=== PATIENT | female | born 1945 | race Caucasian/White ===

== ENCOUNTER → 2017-02-17 | Outpatient (CLI) | payer OTHER | LOC: BMCIMAGING 09:13 | PROVIDERS: ATTEND Internal Medicine Rheumatology | DX: M25.511 Pain in right shoulder (principal); M16.11 Unilateral primary osteoarthritis, right hip ==

== ENCOUNTER → 2017-11-28 | Outpatient (CLI) | payer OTHER | LOC: FIMAGING 07:29 | PROVIDERS: ATTEND Internal Medicine Rheumatology | DX: R07.9 Chest pain, unspecified (principal); R05 Cough ==

== ENCOUNTER 2018-01-22 21:26 | Emergency (ER) | payer OTHER ==
[2018-01-22 21:36] VITALS: TEMP 98.1
--- NOTE | 2018-01-22 21:52 | EDPHY ---
General Time Seen by Provider: 01/22/18 21:43 Narrative: CHIEF COMPLAINT: Left rib pain, twisting injury HISTORY OF PRESENT ILLNESS: Patient complains of left-sided rib pain after an injury today. She was walking out from work when she slipped on some stairs. She says she twisted to her left to use her right arm to stop her fall and felt a sudden onset of pain on the left anterior ribs. She denies striking the ribs as best she can remember. She knows she did not strike her head or lose consciousness. She has no pain anywhere but on the left lower anterior ribs. Worse with palpation and inspiration. Minimally painful at rest. It is constant duration. Does not radiate. No shortness of breath. No abdominal pain. No flank pain. No dysuria or hematuria. No other associated complaints or modifying factors. REVIEW OF SYSTEMS: Ten systems reviewed and are negative unless otherwise noted in the HPI PCP: Dr. Thorne SPECIALISTS: Dr. Perez PAST MEDICAL HISTORY: CKD, Jeff's granulomatosis. No anticoagulation use PAST SURGICAL HISTORY: No recent surgeries SOCIAL HISTORY: Never smoker. No drug or alcohol use. Works as a [employer] FAMILY HISTORY: Noncontributory EXAMINATION General Appearance: Alert, no distress Head: normocephalic, atraumatic. No Rowe sign. No raccoon eyes. Eyes: Pupils equal and round, no conjunctival pallor or injection ENT, Mouth: Mucous membranes moist. Airway is patent Neck: Normal inspection, supple, non-tender. No crepitus, step-off or deformity. Respiratory: Lungs are clear to auscultation. No wheezing, rhonchi or crackles. Splinting with inspiration. Cardiovascular: Regular rate and rhythm. No murmur. Tenderness in the lower left anterior axillary line. No paradoxical movements Gastrointestinal: Abdomen is soft and nontender. No tympany rigidity. No hepatosplenomegaly. No CVA tenderness. Back: non-tender, no bony abnormalities Neurological: A&O, nonfocal, normal gait. Strength is symmetric Skin: Warm and dry, no rash. No petechiae or purpura Extremities: Nontender, no pedal edema symmetric range of motion with baseline deficit the left upper extremity. Psychiatric: Mood and affect normal DIFFERENTIAL DIAGNOSES: Including but not limited to contusion, sprain, strain, rib fracture, pulmonary contusion, pneumothorax, hemothorax MDM: 9:50 p.m. Acute left anterior lower rib pain. The patient does not think that she struck her ribs but thinks this was a twisting mechanism. Her vital signs are within normal limits. Pain is tolerable rest. Her lungs are clear and auscultated in all ozuna. I have ordered chest x-ray with focus on the ribs. Patient may need a CT scan of the chest if we do not have clear etiology or definite trauma etiology. 10:25 p.m. Chest x-ray is negative the for any acute fracture pulmonary finding. 10:30 p.m. Patient re-evaluated. She is somnolent but wakes easily. Her oxygen was 90% on room air, but she informs me she typically uses a CPAP with oxygen at night. When awake her oxygenation is 97-99% on room air. We discussed the negative chest x-ray finding. We discussed performing a CT scan without contrast due to the unclear etiology of her left anterior rib pain. She is comfortable with this and I have ordered this. Given her CKD I will order this without contrast. 10:45 p.m. Patient is currently at CT scan. I have reviewed the CT scan images but not yet discussed with radiologist. 11:20 p.m. Notified by radiologist Dr. Chan. There is a nondisplaced left anterior rib fracture. Chronic changes also noted including hiatal hernia and old L1 compression fracture. I re-evaluated the patient. She is resting comfortably. Her vital signs are within normal limits. Her daughter is now bedside. We discussed the rib fracture. We discussed incentive spirometry and pulmonary toiletry. We discuss splinting of the chest and abdomen, using her oxygen at night and periodically throughout the day if needed. We discussed using her OxyContin that is prescribed previously. We discussed avoiding anti- inflammatories due to her CKD. We discussed close follow-up with her physicians early next week to re-evaluate and for possible repeat chest x-ray if needed. We discussed having a strict ED precautions for any worsening pain, shortness of breath, wheezing, fever or cough. Both the patient and her daughter at bedside are comfortable this plan and she is discharged home stable condition. SUPERVISION: Patient was independently examined, but I discussed the case with my secondary supervising physician Dr. Davis - Diagnostics Imaging Results: Imaging Impressions Ribs w/Chest X-Ray 01/22/18 21:52 Impression: 1. Negative left rib series. 2. Mild subsegmental atelectasis at the left base. Chest CT 01/22/18 22:32 Impression: 1. No significant pulmonary nodules with scattered small benign-appearing less than 3 mm nodules noted bilaterally. 2. Nondisplaced fracture anterolateral left sixth rib. 3. Mild to moderate anterior wedge compression fracture superior endplate of L1 that was also present on chest x-ray study from November,. 4. Mild to moderate hiatal hernia. Findings discussed with Nicholas Buenrostro PAC at 23:14 hour, 01/22/2018. - History Smoking Status: Never smoked - Objective Vital Signs: Initial Vital Signs Temperature (C) 98.1 F 01/22/18 21:32 Heart Rate 93 01/22/18 21:32 Respiratory Rate 16 01/22/18 21:32 Blood Pressure 173/122 H 01/22/18 21:32 O2 Sat (%) 97 01/22/18 21:32 O2 Delivery Mode Room Air Allergies/Adverse Reactions: diphenhydramine [From Benadryl] Allergy (Verified 01/22/18 21:32) Home Medications: Medication Instructions Recorded Calcium Carbonate/Vitamin D3 1 each PO DAILY 01/06/12 [Calcium 500 + Vit D 200 Caplet] Furosemide [Lasix 20 MG (*)] 40 mg PO DAILY 01/06/12 Ibandronate Sodium [Boniva] 150 mg PO .MONTHLY 01/06/12 Pantoprazole Sodium [Protonix 40mg 40 mg PO DAILY 01/06/12 (*)] Potassium Cl [Klor-Con 20 meq (*)] 20 meq PO DAILY 01/06/12 Sodium Bicarbonate 1,300 mg PO BID 01/06/12 Beta-Carotene(A) W-C & E/Min 1 tab PO DAILY 03/11/12 [Ocuvite] Calcitriol [Calcitriol (RX)] 0.25 mcg PO MOTH 03/11/12 Cholecalciferol Vit D3 [Vitamin D 2,000 units PO DAILY 03/11/12 2000 units (OTC)] Ferrous Sulfate [Ferrous Sulf 325 325 mg PO DAILY 03/11/12 MG (OTC)] Sennosides/Docusate Sodium 1 - 2 each PO DAILY PRN 05/10/12 [Senokot-S (OTC)] predniSONE [prednisone 10mg (RX)] 30 mg PO DAILY 03/11/12 Departure - Departure Disposition: Home, Routine, Self-Care Clinical Impression: Closed traumatic nondisplaced fracture of one rib of left side Qualifiers: Encounter type: initial encounter Qualified Code(s): S22.32XA - Fracture of one rib, left side, initial encounter for closed fracture Condition: Good Instructions: How to Use an Incentive Spirometer (ED), Rib Fracture (ED) Additional Instructions: 1. Incentive spirometry as demonstrated several times per hour while awake 2. Contact her physician on Thursday for outpatient follow-up and repeat chest x-ray next week 3. ED precautions as discussed Referrals: Jose Thorne MD [place] [place] - As per Instructions Dedrick Perez MD [Medical Doctor] - As per Instructions
[2018-01-22 23:40] VITALS: BP 158/108; PULSE 75; RESP 18; O2SAT 95
== END 2018-01-22 23:48 | disposition home or self-care (01) ==
DX: S22.32XA Fracture of one rib, left side, initial encounter for closed fracture (principal); N18.9 Chronic kidney disease, unspecified; W10.9XXA Fall (on) (from) unspecified stairs and steps, initial encounter; Y99.8 Other external cause status; Y93.01 Activity, walking, marching and hiking

== ENCOUNTER → 2018-04-18 | Outpatient (CLI) | payer OTHER | LOC: FIMAGING 07:06 | PROVIDERS: ATTEND Internal Medicine Rheumatology | DX: M24.811 Other specific joint derangements of right shoulder, not elsewhere classified (principal); M24.812 Other specific joint derangements of left shoulder, not elsewhere classified; M23.91 Unspecified internal derangement of right knee; M23.92 Unspecified internal derangement of left knee; M11.261 Other chondrocalcinosis, right knee ==

== ENCOUNTER → 2018-08-06 | Outpatient (CLI) | payer OTHER | LOC: FIMAGING 15:34 | PROVIDERS: ATTEND Internal Medicine | DX: J40 Bronchitis, not specified as acute or chronic (principal); J21.9 Acute bronchiolitis, unspecified; I25.84 Coronary atherosclerosis due to calcified coronary lesion; R91.1 Solitary pulmonary nodule ==

== ENCOUNTER → 2018-11-24 | Outpatient (CLI) | payer OTHER | LOC: FIMAGING 15:35 | PROVIDERS: ATTEND Internal Medicine | DX: K57.30 Diverticulosis of large intestine without perforation or abscess without bleeding (principal); N20.0 Calculus of kidney; N18.9 Chronic kidney disease, unspecified; I70.0 Atherosclerosis of aorta; K44.9 Diaphragmatic hernia without obstruction or gangrene; M46.96 Unspecified inflammatory spondylopathy, lumbar region; M51.36 Other intervertebral disc degeneration, lumbar region; M51.37 Other intervertebral disc degeneration, lumbosacral region ==

== ENCOUNTER 2019-01-15 20:18 | Emergency (ER) | payer OTHER ==
--- NOTE | 2019-01-15 21:06 | EDPHY ---
General Time Seen by Provider: 01/15/19 20:34 Narrative: CLINICAL IMPRESSION: Bilateral ankle sprains, foot contusions ASSESSMENT/PLAN: 73-year-old female who tripped up a step going in her home tonight injuring both ankles, both feet and her left lower leg. Patient has had prior ORIF of the left ankle. No open wounds or obvious deformity. Distal neurovascular exam intact. She suffers from chronic left knee pain which is unchanged. X- rays of the left tib-fib, bilateral ankles and bilateral feet show degenerative changes, healed old fractures with no acute fracture or joint dislocation. Patient was reassured, an Aries wrap was provided to the left ankle. Lidoderm patch was applied to the left posterior ribs where she began complaining of pain on reassessment but declined x-rays. Lung sounds are clear. I encouraged PCP and orthopedic follow-up. Warning signs return to ED sooner outlined and discharge. DIFFERENTIAL DX: Differential includes but not limited to acute fracture, strain/sprain, joint dislocation, soft tissue contusion ED PROCEDURES: Procedure: Splint placement. A Aries bandage splint was applied to left ankle by nanotechnology engineering technologist, supervised by myself. After application of the splint I returned and re-examined the patient. The splint was adequately immobilizing the joint and distal to the splint the patient's circulation and sensation was intact. ED COURSE: 9:45 p.m.: X-rays negative for acute fracture. Read by Radiology. CHIEF COMPLAINT: Bilateral ankle, feet pain, and left lower leg pain after ground level fall. HPI: 73-year-old female presents to the emergency department after she had a ground level fall tripping up a step into her house tonight. Patient reports she injured both of her ankles, feet and left leg. Initially was unable to get up, drug herself to a chair, sat for a while and then was able to ambulate into the house and call for help. She has had prior ORIF of the left ankle in 2012 secondary to fracture. She did not hit her head and did not injure anything else on her body. She has chronic unchanged left knee pain. No open wounds. PAST MEDICAL HISTORY: Vascular disease Pertinent Past Surgical History: Prior ORIF left ankle Social History: Lives alone REVIEW OF SYSTEMS: All other systems negative Constitutional: No fever, no chills Musculoskeletal: No deformity, + joint pain Skin: No rashes, color change or open wounds. Neurological: No sensory loss or weakness. PHYSICAL EXAM: General Appearance: Alert, oriented, appropriate for age, cooperative, NAD, well hydrated, non-toxic appearing, VSS, no hypoxia. Neurological: Alert and oriented x 3, normal sensation and strength of extremities Skin: Warm, dry, no rashes, no nodules on palpation. Musculoskeletal: Bruising noted to the dorsum of the left foot. Swelling along the medial and lateral malleolus of the left ankle. No deformity. Distal neurovascular exam intact. Reproducible pain to palpation along bilateral feet, bilateral lateral malleoli, and proximal tib-fib of the left leg. Pain along the left posterior ribs but patient does not want x-rays of the ribs or chest. No crepitus. Lung sounds clear to auscultation bilaterally. MEDICAL DECISION MAKING: Patient was seen independently. Secondary supervising physician at time of evaluation was Dr. Diaz. Diagnosis: Bilateral ankle sprains, bilateral foot contusion. New, requires workup Summary: See assessment and plan for summary of ED visit Independent visualization of images, tracing, or specimens yes. Patient Progress: Stable for discharge. - Diagnostics Imaging Results: Imaging Impressions Ankle X-Ray 01/15/19 00:00 Impression: 1. Degenerative osteoarthritic features of the knee, and an old healed proximal fibular diaphyseal fracture contour deformity, similar to 2018. 2. Bone demineralization, with no acute fracture observed. BILATERAL ANKLES (AP, Mortise, and Lateral Views, at 8:52 PM): Right Ankle: The bones are demineralized. There is some soft tissue swelling laterally. There is no acute fracture or dislocation. There are small posterior calcaneal enthesophytes. The mortise is maintained, and the talar dome is well contoured. Impression: Soft tissue swelling, lateral greater than medial, with no acute osseous abnormality identified. Left Ankle: The bones are demineralized. There are some chronic degenerative changes at the tibiotalar articulation with osseous hypertrophy of the medial malleolus and evidence of old healed distal tibial and fibular contour deformities. There are some "ghosting" artifacts from previously placed and subsequently removed orthopedic hardware. There are prominent posterior calcaneal enthesophytes. The talar neck and subtalar joint are normal. Impression: Sequela of old healed distal tibial and fibular fractures with secondary degenerative osteoarthrosis and soft tissue swelling with bone demineralization, but no acute fracture identified. BILATERAL FEET (AP, Oblique, and Lateral Views, at 9:04 PM): Left Foot: The bones are demineralized. Since the previous study in June 2018 , there has been interim healing of the fractures at the level of the distal diaphyseal portions of the third and fourth metatarsals. The bones are demineralized. The tarsometatarsal alignments are anatomic. Posterior calcaneal enthesophytes and old healed posttraumatic changes of the distal tibia and fibula are noted. There is some mild forefoot soft tissue swelling. Atherosclerotic calcifications are observed. Impression: 1. Old healed fractures of the distal diaphyseal portions the third and fourth metatarsals, and of the distal tibia and fibula. 2. Diffuse bone demineralization, with no acute fracture identified. Right Foot: As on the contralateral side, the bones are demineralized. There is no acute fracture or dislocation. The tarsometatarsal alignment is anatomic. Small posterior calcaneal enthesophytes are observed. Impression: There is no acute osseous abnormality identified. Ankle X-Ray 01/15/19 20:40 Impression: 1. Degenerative osteoarthritic features of the knee, and an old healed proximal fibular diaphyseal fracture contour deformity, similar to 2018. 2. Bone demineralization, with no acute fracture observed. BILATERAL ANKLES (AP, Mortise, and Lateral Views, at 8:52 PM): Right Ankle: The bones are demineralized. There is some soft tissue swelling laterally. There is no acute fracture or dislocation. There are small posterior calcaneal enthesophytes. The mortise is maintained, and the talar dome is well contoured. Impression: Soft tissue swelling, lateral greater than medial, with no acute osseous abnormality identified. Left Ankle: The bones are demineralized. There are some chronic degenerative changes at the tibiotalar articulation with osseous hypertrophy of the medial malleolus and evidence of old healed distal tibial and fibular contour deformities. There are some "ghosting" artifacts from previously placed and subsequently removed orthopedic hardware. There are prominent posterior calcaneal enthesophytes. The talar neck and subtalar joint are normal. Impression: Sequela of old healed distal tibial and fibular fractures with secondary degenerative osteoarthrosis and soft tissue swelling with bone demineralization, but no acute fracture identified. BILATERAL FEET (AP, Oblique, and Lateral Views, at 9:04 PM): Left Foot: The bones are demineralized. Since the previous study in June 2018 , there has been interim healing of the fractures at the level of the distal diaphyseal portions of the third and fourth metatarsals. The bones are demineralized. The tarsometatarsal alignments are anatomic. Posterior calcaneal enthesophytes and old healed posttraumatic changes of the distal tibia and fibula are noted. There is some mild forefoot soft tissue swelling. Atherosclerotic calcifications are observed. Impression: 1. Old healed fractures of the distal diaphyseal portions the third and fourth metatarsals, and of the distal tibia and fibula. 2. Diffuse bone demineralization, with no acute fracture identified. Right Foot: As on the contralateral side, the bones are demineralized. There is no acute fracture or dislocation. The tarsometatarsal alignment is anatomic. Small posterior calcaneal enthesophytes are observed. Impression: There is no acute osseous abnormality identified. Foot X-Ray 01/15/19 20:52 Impression: 1. Degenerative osteoarthritic features of the knee, and an old healed proximal fibular diaphyseal fracture contour deformity, similar to 2018. 2. Bone demineralization, with no acute fracture observed. BILATERAL ANKLES (AP, Mortise, and Lateral Views, at 8:52 PM): Right Ankle: The bones are demineralized. There is some soft tissue swelling laterally. There is no acute fracture or dislocation. There are small posterior calcaneal enthesophytes. The mortise is maintained, and the talar dome is well contoured. Impression: Soft tissue swelling, lateral greater than medial, with no acute osseous abnormality identified. Left Ankle: The bones are demineralized. There are some chronic degenerative changes at the tibiotalar articulation with osseous hypertrophy of the medial malleolus and evidence of old healed distal tibial and fibular contour deformities. There are some "ghosting" artifacts from previously placed and subsequently removed orthopedic hardware. There are prominent posterior calcaneal enthesophytes. The talar neck and subtalar joint are normal. Impression: Sequela of old healed distal tibial and fibular fractures with secondary degenerative osteoarthrosis and soft tissue swelling with bone demineralization, but no acute fracture identified. BILATERAL FEET (AP, Oblique, and Lateral Views, at 9:04 PM): Left Foot: The bones are demineralized. Since the previous study in June 2018 , there has been interim healing of the fractures at the level of the distal diaphyseal portions of the third and fourth metatarsals. The bones are demineralized. The tarsometatarsal alignments are anatomic. Posterior calcaneal enthesophytes and old healed posttraumatic changes of the distal tibia and fibula are noted. There is some mild forefoot soft tissue swelling. Atherosclerotic calcifications are observed. Impression: 1. Old healed fractures of the distal diaphyseal portions the third and fourth metatarsals, and of the distal tibia and fibula. 2. Diffuse bone demineralization, with no acute fracture identified. Right Foot: As on the contralateral side, the bones are demineralized. There is no acute fracture or dislocation. The tarsometatarsal alignment is anatomic. Small posterior calcaneal enthesophytes are observed. Impression: There is no acute osseous abnormality identified. Foot X-Ray 01/15/19 20:52 Impression: 1. Degenerative osteoarthritic features of the knee, and an old healed proximal fibular diaphyseal fracture contour deformity, similar to 2018. 2. Bone demineralization, with no acute fracture observed. BILATERAL ANKLES (AP, Mortise, and Lateral Views, at 8:52 PM): Right Ankle: The bones are demineralized. There is some soft tissue swelling laterally. There is no acute fracture or dislocation. There are small posterior calcaneal enthesophytes. The mortise is maintained, and the talar dome is well contoured. Impression: Soft tissue swelling, lateral greater than medial, with no acute osseous abnormality identified. Left Ankle: The bones are demineralized. There are some chronic degenerative changes at the tibiotalar articulation with osseous hypertrophy of the medial malleolus and evidence of old healed distal tibial and fibular contour deformities. There are some "ghosting" artifacts from previously placed and subsequently removed orthopedic hardware. There are prominent posterior calcaneal enthesophytes. The talar neck and subtalar joint are normal. Impression: Sequela of old healed distal tibial and fibular fractures with secondary degenerative osteoarthrosis and soft tissue swelling with bone demineralization, but no acute fracture identified. BILATERAL FEET (AP, Oblique, and Lateral Views, at 9:04 PM): Left Foot: The bones are demineralized. Since the previous study in June 2018 , there has been interim healing of the fractures at the level of the distal diaphyseal portions of the third and fourth metatarsals. The bones are demineralized. The tarsometatarsal alignments are anatomic. Posterior calcaneal enthesophytes and old healed posttraumatic changes of the distal tibia and fibula are noted. There is some mild forefoot soft tissue swelling. Atherosclerotic calcifications are observed. Impression: 1. Old healed fractures of the distal diaphyseal portions the third and fourth metatarsals, and of the distal tibia and fibula. 2. Diffuse bone demineralization, with no acute fracture identified. Right Foot: As on the contralateral side, the bones are demineralized. There is no acute fracture or dislocation. The tarsometatarsal alignment is anatomic. Small posterior calcaneal enthesophytes are observed. Impression: There is no acute osseous abnormality identified. Tibia/Fibula X-Ray 01/15/19 20:52 Impression: 1. Degenerative osteoarthritic features of the knee, and an old healed proximal fibular diaphyseal fracture contour deformity, similar to 2018. 2. Bone demineralization, with no acute fracture observed. BILATERAL ANKLES (AP, Mortise, and Lateral Views, at 8:52 PM): Right Ankle: The bones are demineralized. There is some soft tissue swelling laterally. There is no acute fracture or dislocation. There are small posterior calcaneal enthesophytes. The mortise is maintained, and the talar dome is well contoured. Impression: Soft tissue swelling, lateral greater than medial, with no acute osseous abnormality identified. Left Ankle: The bones are demineralized. There are some chronic degenerative changes at the tibiotalar articulation with osseous hypertrophy of the medial malleolus and evidence of old healed distal tibial and fibular contour deformities. There are some "ghosting" artifacts from previously placed and subsequently removed orthopedic hardware. There are prominent posterior calcaneal enthesophytes. The talar neck and subtalar joint are normal. Impression: Sequela of old healed distal tibial and fibular fractures with secondary degenerative osteoarthrosis and soft tissue swelling with bone demineralization, but no acute fracture identified. BILATERAL FEET (AP, Oblique, and Lateral Views, at 9:04 PM): Left Foot: The bones are demineralized. Since the previous study in June 2018 , there has been interim healing of the fractures at the level of the distal diaphyseal portions of the third and fourth metatarsals. The bones are demineralized. The tarsometatarsal alignments are anatomic. Posterior calcaneal enthesophytes and old healed posttraumatic changes of the distal tibia and fibula are noted. There is some mild forefoot soft tissue swelling. Atherosclerotic calcifications are observed. Impression: 1. Old healed fractures of the distal diaphyseal portions the third and fourth metatarsals, and of the distal tibia and fibula. 2. Diffuse bone demineralization, with no acute fracture identified. Right Foot: As on the contralateral side, the bones are demineralized. There is no acute fracture or dislocation. The tarsometatarsal alignment is anatomic. Small posterior calcaneal enthesophytes are observed. Impression: There is no acute osseous abnormality identified. - History Smoking Status: Never smoked - Objective Vital Signs: Initial Vital Signs Temperature (C) 37.0 C 01/15/19 20:25 Heart Rate 97 01/15/19 20:25 Respiratory Rate 18 01/15/19 20:25 Blood Pressure 151/104 H 01/15/19 20:25 O2 Sat (%) 97 01/15/19 20:25 O2 Delivery Mode Room Air Allergies/Adverse Reactions: diphenhydramine [From Benadryl] Allergy (Verified 01/15/19 20:28) Home Medications: Medication Instructions Recorded NK [No Known Home Meds] 01/15/19 Medications Given: Discontinued Medications Miscellaneous Medication (Icy Hot Lidocaine/Menthol 4%/1% Patch) 1 patch TD EDNOW ONE Stop: 01/15/19 22:02 Last Admin: 01/15/19 22:24 Dose: 1 patch Departure - Departure Disposition: Home, Routine, Self-Care Clinical Impression: Left ankle sprain, Right ankle sprain, Contusion of foot Condition: Good Instructions: Ankle Sprain (DC), Foot Sprain (ED) Additional Instructions: DISCHARGE INSTRUCTIONS FROM YOUR DOCTOR Thank you for visiting our emergency department today. You were treated by a physician phlebotomist medical lab assistant today and your case was reviewed with our ED Attending physician. Please keep in mind that discharge from the emergency department does not mean that there is nothing wrong - it simply means that we have not identified an emergency condition that requires further evaluation or treatment in the hospital. You should always plan to follow up with primary care for re- evaluation of your condition in the next 2-3 days. If you have been referred to a specialist, please call as soon as possible (today or tomorrow) to schedule your follow up appointment at the appropriate time. X-RAYS OF HER LEFT LEG, BILATERAL ANKLES, AND BILATERAL FEET SHOW NO EVIDENCE OF ACUTE FRACTURE. YOU HAVE EVIDENCE OF OLD FRACTURES. DEGENERATIVE CHANGES NOTED. REST AND ELEVATE THE AFFECTED EXTREMITY MUCH POSSIBLE. ICE THE AFFECTED AREAS 20 MIN ON, 20 MIN OFF FOR THE NEXT SEVERAL DAYS. PLEASE FOLLOW- UP WITH ORTHOPEDICS IF HER PAIN PERSISTS OR WORSENS. RETURN TO THE ED FOR SEVERE PAIN, LOSS OF SENSATION TO FOOT OR ANKLES, INABILITY TO WALK, OR ANY OTHER CONCERN. People present with illnesses and injuries in different ways, and it is always possible that we have missed something. You may always return for re-evaluation if symptoms worsen or if they are not improving or if you develop new/different symptoms. Again, thank you for choosing our emergency department. We hope that you feel better. Referrals: Vitor Smith MD [Primary Care Provider] - As per Instructions Drew Beck MD [Medical Doctor] - 3-4 days, if not improved
[2019-01-15] MEDS ORDERED: LIDOCAINE 4%/MENTHOL 1% PATCH TD ONE (22:01)
[2019-01-15 22:27] VITALS: BP 172/100
[2019-01-16] MEDS ORDERED: PATCH REMOVAL 1 EA PATCH TD SCH (21:00)
== END 2019-01-15 22:35 | disposition home or self-care (01) ==
DX: S93.401A Sprain of unspecified ligament of right ankle, initial encounter (principal); S93.402A Sprain of unspecified ligament of left ankle, initial encounter; S90.32XA Contusion of left foot, initial encounter; W01.0XXA Fall on same level from slipping, tripping and stumbling without subsequent striking against object, initial encounter; Y92.009 Unspecified place in unspecified non-institutional (private) residence as the place of occurrence of the external cause; Y93.9 Activity, unspecified; Y99.9 Unspecified external cause status